=== PATIENT | male | born 1995 | race Two or more races ===

== ENCOUNTER 2024-06-30 07:00 | Emergency (ER) | payer MEDICAID, SELFPAY ==
[2024-06-30 07:01] VITALS: BMI 31.6
[2024-06-30 07:13] VITALS: BP 168/105; BP 173/116; PULSE 88; RESP 16; TEMP 36.9; O2SAT 99; BMI 28.9
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
[2024-06-30] MEDS: CYCLObenzaPRINE 5 MG TABLET PO (07:43)
[2024-06-30] MEDS: IBUPROFEN TAB 400 MG TABLET 800 MG PO (07:43)
== END 2024-06-30 08:23 | disposition home or self-care (01) ==
PROVIDERS: Emergency Provider Emergency Medicine
DX: S79.911A Unspecified injury of right hip, initial encounter (principal); V89.2XXA Person injured in unspecified motor-vehicle accident, traffic, initial encounter
CPT/HCPCS: 73502; 99283; A9270

== ENCOUNTER 2025-03-15 21:26 | Emergency (ER) | payer SELFPAY ==
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
[2025-03-15 21:46] VITALS: BP 158/110; PULSE 129; RESP 17; TEMP 37.2; O2SAT 97
[2025-03-15 21:48] VITALS: BMI 28.3
[2025-03-15 21:58] VITALS: BP 154/93; PULSE 124
== END 2025-03-15 21:58 ==
LOC: SERX 21:48
PROVIDERS: Emergency Provider Emergency Medicine
DX: Z02.89 Encounter for other administrative examinations (principal); Z04.1 Encounter for examination and observation following transport accident
CPT/HCPCS: 99281